=== PATIENT | male | born 1960 | race Caucasian/White ===

== ENCOUNTER → 2025-02-16 | Outpatient (CLI) | payer MEDICAID, SELFPAY ==
--- NOTE | 2025-02-16 08:30 | FLU_PTH ---
PATIENT: JOSE ANGEL CM LOC: [facility] U#:[id number] AGE/SX: 64/M ROOM: RE02/16/[address]: Dr. Skinny Oliver MD : 1960 BED: DIS: 02/16/2025 SPEC #: [id number] RECD: 02/16/25 08:45 STATUS: YOVANI ABBEY #: [id number] HEATHER: 02/16/25 08:[address]: Skinny Oliver DEPT: CYTOLOGY RECD BY: [place] Kuo ENTERED: 02/16/25 10:23 SP TYPE: Fluid OTHR DR: Dr. Jeannette Marks MD Tissues: A - Thyroid gland, NOS B - Thyroid gland, NOS Procedures: Special Stain Group II Surgery Specimen Level IV Cytospin Fluid HEADER OPERATION: Fine needle aspiration of right thyroid nodule PRE-OP DIAGNOSIS: Right thyroid nodule TISSUE SUBMITTED: A- Right thyroid nodule, B- Left thyroid nodule DIAGNOSIS CYTOLOGY A. Right thyroid, nodule, FNA (smear x4, cytospin): - Atypical cells of undetermined significance (TBS III). - Borderline adequate cellularity. - Ultrasound gel artifact noted. B. Left thyroid, nodule, FNA (smear x4, cytospin): - Atypical cells of undetermined significance (TBS III). COMMENT A, B) Afirma testing will be performed. CYTOLOGY STUDY Slides are reviewed. CYTOLOGY GROSS A. Received is 30 ml of pink-cloudy cytolyt with particles and 4 smears labeled with the patient's name and and designated per the requisition as Right thyroid nodule. Submitted for cytology and cytospin. B. Received is 30 ml of pink-cloudy cytolyt with particles and 4 smears labeled with the patient's name and and designated per the requisition as Left thyroid nodule. Submitted for cytology and cytospin. 02/16/2025 CPT: 54297 x2 ADDENDUM ADDENDUM ADDENDUM ADDENDUM ADDENDUM ADDENDUM ADDENDUM ADDENDUM ADDENDUM ADDENDUM ADDENDUM ADDENDUM ADDENDUM ADDENDUM ADDENDUM ADDENDUM 03/08/2025 10:19 ADDENDUM 03/08/2025 10:19 ADDENDUM 03/08/2025 10:19 ADDENDUM 03/08/2025 10:19 ADDENDUM 03/08/2025 10:19 AFIRMA RESULTS REPORT - A RESULTS INTERPRETATION: The result of this 1.7 cm [place] III nodule A is Afirma GSC benign, which suggests a low risk of cancer of approximately 4%. Treatment like a cytologically benign nodule may be appropriate, including clinical correlation. Afirma XA is not performed on GSC Benign nodules. TERT promoter region analysis is not performed on GSC Benign nodules. AFIRMA RESULTS REPORT - B No result for Afirma GSC due to inadequate RNA yield. Inadequate RNA yields typically result from low nodule cellularity or insufficient FNA material. [facility] recommends resubmitting another FNA sample. Please see complete report in e-chart or EMR
--- NOTE | 2025-02-16 08:30 | FLU_PTH ---
PATIENT: JOSE ANGEL CM LOC: [facility] U#:[id number] AGE/SX: 64/M ROOM: RE02/16/[address]: Dr. Skinny Oliver MD : 1960 BED: DIS: 02/16/2025 SPEC #: [id number] RECD: 02/16/25 08:45 STATUS: YOVANI ABBEY #: [id number] HEATHER: 02/16/25 08:[address]: Skinny Oliver DEPT: CYTOLOGY RECD BY: [place] Kuo ENTERED: 02/16/25 10:23 SP TYPE: Fluid OTHR DR: Dr. Jeannette Marks MD Tissues: A - Thyroid gland, NOS B - Thyroid gland, NOS Procedures: Special Stain Group II Surgery Specimen Level IV Cytospin Fluid HEADER OPERATION: Fine needle aspiration of right thyroid nodule PRE-OP DIAGNOSIS: Right thyroid nodule TISSUE SUBMITTED: A- Right thyroid nodule, B- Left thyroid nodule DIAGNOSIS CYTOLOGY A. Right thyroid, nodule, FNA (smear x4, cytospin): - Atypical cells of undetermined significance (TBS III). - Borderline adequate cellularity. - Ultrasound gel artifact noted. B. Left thyroid, nodule, FNA (smear x4, cytospin): - Atypical cells of undetermined significance (TBS III). COMMENT A, B) Afirma testing will be performed. CYTOLOGY STUDY Slides are reviewed. CYTOLOGY GROSS A. Received is 30 ml of pink-cloudy cytolyt with particles and 4 smears labeled with the patient's name and and designated per the requisition as Right thyroid nodule. Submitted for cytology and cytospin. B. Received is 30 ml of pink-cloudy cytolyt with particles and 4 smears labeled with the patient's name and and designated per the requisition as Left thyroid nodule. Submitted for cytology and cytospin. 02/16/2025 CPT: 64424 x2 ADDENDUM ADDENDUM ADDENDUM ADDENDUM ADDENDUM ADDENDUM ADDENDUM ADDENDUM ADDENDUM ADDENDUM ADDENDUM ADDENDUM ADDENDUM ADDENDUM ADDENDUM ADDENDUM 03/08/2025 10:19 ADDENDUM 03/08/2025 10:19 ADDENDUM 03/08/2025 10:19 ADDENDUM 03/08/2025 10:19 ADDENDUM 03/08/2025 10:19 AFIRMA RESULTS REPORT - A RESULTS INTERPRETATION: The result of this 1.7 cm [place] III nodule A is Afirma GSC benign, which suggests a low risk of cancer of approximately 4%. Treatment like a cytologically benign nodule may be appropriate, including clinical correlation. Afirma XA is not performed on GSC Benign nodules. TERT promoter region analysis is not performed on GSC Benign nodules. AFIRMA RESULTS REPORT - B No result for Afirma GSC due to inadequate RNA yield. Inadequate RNA yields typically result from low nodule cellularity or insufficient FNA material. [facility] recommends resubmitting another FNA sample. Please see complete report in e-chart or EMR
== END | disposition home or self-care (01) ==
PROVIDERS: PCP Student in an Organized Health Care Education/Training Program; Referring Provider Surgery; Visit Provider Surgery
DX: E04.2 Nontoxic multinodular goiter (principal)
CPT/HCPCS: 88108; 88305; 88313

== ENCOUNTER 2025-03-28 08:45 | Outpatient (CLI) | payer MEDICARE, MEDICAID, SELFPAY ==
--- NOTE | 2025-03-28 08:45 | CYSPIN_PTH ---
PATIENT: JOSE ANGEL CM LOC: [facility] U#:[id number] AGE/SX: 65/M ROOM: RE03/28/[address]: Dr. Skinny Oliver MD : 1960 BED: DIS: 03/28/2025 SPEC #: [id number] RECD: 03/28/25 08:50 STATUS: YOVANI REEmma #: [id number] HEATHER: 03/28/25 08:[address]: Skinny Oliver DEPT: CYTOLOGY RECD BY: [place] Kuo ENTERED: 03/28/25 11:36 SP TYPE: CYSPIN FL OTHR DR: Dr. Jeannette Marks MD Tissues: A - Thyroid gland, NOS Procedures: Pap Stain (control) Special Stain Group II Diff Quik Stain (control) Cytospin Fluid Cytology Other HEADER OPERATION: Fine needle aspiration of left thyroid nodule PRE-OP DIAGNOSIS: Left thyroid nodule TISSUE SUBMITTED: A- Left thyroid nodule for cytology DIAGNOSIS CYTOLOGY A. Left thyroid, nodule, FNA (cytospin, smear x4): * Atypical cells (TBS III). Note: Afirma testing will be submitted. COMMENT The specimen is evaluated at the time of biopsy by Dr. Leblanc. Immediate Evaluation = 1. Macrophages. 2. Macrophages. CYTOLOGY STUDY Slides are reviewed. CYTOLOGY GROSS A. Received is 30 ml of pale-pink cytolyt with particles labeled with the patient's name and and designated per the requisition as Left thyroid nodule. Submitted for cytology and cytospin. Mr 03/28/2025 CPT: 06576,88261 ADDENDUM ADDENDUM ADDENDUM ADDENDUM ADDENDUM ADDENDUM ADDENDUM ADDENDUM ADDENDUM 04/26/2025 09:07 ADDENDUM 04/26/2025 09:07 ADDENDUM 04/26/2025 09:07 ADDENDUM 04/26/2025 09:07 ADDENDUM 04/26/2025 09:07 AFIRMA RESULTS REPORT - SPECIMEN A RESULTS INTERPRETATION: The result of this 1 cm [place] III nodule A is Afirma GSC benign, which suggests a low risk of cancer of approximately 4%. Treatment like a cytologically benign nodule may be appropriate, including clinical correlation. Afirma XA is not performed on [facility] Benign nodules. TERT promoter region analysis is not performed on [facility] Benign nodules. Please see complete report in e-chart or EMR
== END 2025-03-28 23:59 | disposition home or self-care (01) ==
PROVIDERS: PCP Student in an Organized Health Care Education/Training Program; Referring Provider Surgery; Visit Provider Surgery
DX: E04.1 Nontoxic single thyroid nodule (principal)
CPT/HCPCS: 88108; 88161; 88313

== ENCOUNTER → 2025-06-07 | Outpatient (CLI) | payer MEDICARE, MEDICAID, SELFPAY ==
[2025-06-07 12:28] LABS: Hematocrit 41.7 % (40-54); Hemoglobin 14.2 g/dL (13.0-16.5); Mean Corp Hgb Conc 34.1 g/dL (32-36); Mean Corpuscular Volume 95.2 fL (80-94); Mean Platelet Vol. 11.3 fl (6.2-12.0); Platelet Count 212 K/mm3 (150-450); RBC Distribution Width CV 13.2 % (11.6-14.6); RBC Distribution Width SD 46.3 fl (35.1-43.9); Red Blood Count 4.38 M/mm3 (4.6-6.2); White Blood Count 6.9 K/mm3 (4.4-11.0)
[2025-06-07 12:47] LABS: AST(SGOT) 17 U/L (<=37); Alanine Aminotransfer ALT/SGPT 11 U/L (<=46); Albumin, Serum 4.0 g/dL (3.4-4.8); Alkaline Phosphatase 78 U/L (40-129); Anion Gap 13 (5-15); BUN 16 mg/dL (4-19); BUN/Creat Ratio 14.4 RATIO (10-20); Calcium,Total 9.0 mg/dL (7.6-11.0); Carbon Dioxide 26.8 mmol/L (21.0-32.0); Chloride 101 mmol/L (98-108); Globulin 3.1 g/dL (2.2-4.2); Glucose 110 mg/dL (70-99); Potassium 4.4 mmol/L (3.3-5.1)
[2025-06-07 12:52] LABS: Valproic Acid (Depakene) Level 61 ug/mL (50-100)
== END | disposition home or self-care (01) ==
PROVIDERS: PCP Student in an Organized Health Care Education/Training Program; Referring Provider Registered Nurse; Visit Provider Registered Nurse
DX: F25.9 Schizoaffective disorder, unspecified (principal); Z79.899 Other long term (current) drug therapy
CPT/HCPCS: 80053; 80164; 85027